=== PATIENT | male | born 1990 ===

== ENCOUNTER 2016-06-14 12:30 | Emergency (ER) | payer OTHER ==
[2016-06-14 12:31] VITALS: BMI 20.3
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
[2016-06-14 12:46] VITALS: TEMP 98.3
[2016-06-14] MEDS ORDERED: TDAP Vaccine 0.5 mL Syr IM ONE (12:48)
[2016-06-14 13:49] VITALS: BP 129/80; PULSE 69; RESP 16; O2SAT 99
== END 2016-06-14 13:47 | disposition home or self-care (01) ==
LOC: ED 12:30
DX: S91.012A Laceration without foreign body, left ankle, initial encounter (principal); W25.XXXA Contact with sharp glass, initial encounter; Y92.009 Unspecified place in unspecified non-institutional (private) residence as the place of occurrence of the external cause; Z23 Encounter for immunization

== ENCOUNTER 2016-08-29 12:06 | Emergency (ER) | payer OTHER ==
[2016-08-29 12:07] VITALS: BMI 19.9
[2016-08-29 12:11] VITALS: BP 110/74; PULSE 71; RESP 19; TEMP 98; O2SAT 100
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
== END 2016-08-29 13:10 | disposition home or self-care (01) ==
LOC: ED 12:06
DX: S80.811A Abrasion, right lower leg, initial encounter (principal); Y08.89XA Assault by other specified means, initial encounter; Y93.89 Activity, other specified; Y92.89 Other specified places as the place of occurrence of the external cause

== ENCOUNTER 2017-04-22 07:26 | Emergency (ER) | payer OTHER ==
[2017-04-22 07:38] VITALS: BMI 22.1
[2017-04-22 07:40] VITALS: PULSE 64; TEMP 98.3
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
[2017-04-22 08:14] VITALS: BP 128/79; RESP 18; O2SAT 98
== END 2017-04-22 08:14 | disposition home or self-care (01) ==
LOC: ED 07:26
DX: K08.89 Other specified disorders of teeth and supporting structures (principal); F17.210 Nicotine dependence, cigarettes, uncomplicated
CPT/HCPCS: 96372; 99283; J1885

== ENCOUNTER 2017-10-11 15:20 | Emergency (ER) | payer OTHER ==
[2017-10-11 15:45] VITALS: RESP 18; TEMP 98.6; BMI 20.7
--- NOTE | 2017-10-11 15:52 | ED PDOC ---
Arrival/HPI - General Chief Complaint: Hip Pain Time Seen by Provider: 10/11/17 15:37 Historian: Patient - History of Present Illness Narrative History of Present Illness (Text): 10/11/17 15:40 This 26 yo male with a pmh herniated disc, presents to this ED c/o left lower back pain, radiates to left buttock x 2 weeks. 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 Patient denies fever , sob, cp, abdominal pain, urinary symptoms, testicular symptoms, flank pain, std exposure, skin rash, /GI incontinence, saddle anesthesias, illegal iv drug use, urinary retention, dizziness, trauma, or abnormal gait. 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 Time/Duration: Other (see hpi) Context: Home Past Medical History - Provider Review Nursing Documentation Reviewed: Yes - Infectious Disease Hx of Infectious Diseases: None - Tetanus Immunization Tetanus Immunization: Unknown - Past Medical History Past Medical History: No Previous - Cardiac Hx Cardiac Disorders: No - Pulmonary Hx Respiratory Disorders: No - Neurological Other/Comment: BRAIN SURGERY 2009 DUE TO SKULL fracture and bleed clipped - HEENT Hx HEENT Disorder: No - Renal Hx Renal Disorder: No - Endocrine/Metabolic Hx Endocrine Disorders: No - Hematological/Oncological Hx Blood Disorders: No - Integumentary Hx Dermatological Disorder: No - Musculoskeletal/Rheumatological Hx Musculoskeletal Disorders: No Other/Comment: Left knee tear on meniscus - Gastrointestinal Hx Gastrointestinal Disorders: No - Genitourinary/Gynecological Hx Genitourinary Disorders: No - Psychiatric Hx Depression: No Hx Emotional Abuse: No Hx Physical Abuse: No Hx Substance Use: Yes - Past Surgical History Past Surgical History: No Previous - Surgical History Hx Appendectomy: Yes Other/Comment: BRAIN SURGERY 2009 - Anesthesia Hx Anesthesia: Yes Hx Anesthesia Reactions: No Hx Malignant Hyperthermia: No - Suicidal Assessment Feels Threatened In Home Enviroment: No Family/Social History - Physician Review Nursing Documentation Reviewed: Yes Family/Social History: Other (noncontributory) Smoking Status: Light Smoker < 10 Cigarettes Daily Hx Alcohol Use: Yes Hx Substance Use: Yes Substance used: marijuana Hx Substance Use Treatment: No Allergies/Home Meds Allergies/Adverse Reactions: Allergies No Known Allergies Allergy (Verified 10/11/17 15:38) Review of Systems - Review of Systems Constitutional: Normal. absent: Fatigue, Weight Change, Fevers Eyes: Normal ENT: Normal Respiratory: Normal. absent: SOB, Cough, Sputum, Wheezing Cardiovascular: Normal. absent: Chest Pain Gastrointestinal: Normal. absent: Abdominal Pain, Nausea, Vomiting Genitourinary Male: Normal. absent: Dysuria, Frequency, Hematuria Musculoskeletal: Back Pain Skin: Normal Neurological: Normal. absent: Headache, Dizziness, Focal Weakness, Gait Changes , Speech Changes, Facial Droop, Disequilibrium, Seizure Endocrine: Normal Hemo/Lymphatic: Normal Psychiatric: Normal Physical Exam Vital Signs Temp Pulse Resp BP Pulse Ox 10/11/17 16:41 98.6 F 70 18 115/71 100 10/11/17 15:20 98.6 F 73 18 112/72 96 Temperature: Afebrile Blood Pressure: Normal Pulse: Regular Respiratory Rate: Normal Appearance: Positive for: Well-Appearing, Non-Toxic, Comfortable Pain Distress: None Mental Status: Positive for: Alert and Oriented X 3 - Systems Exam Head: Present: Atraumatic, Normocephalic Pupils: Present: PERRL Extroacular Muscles: Present: EOMI Conjunctiva: Present: Normal Mouth: Present: Moist Mucous Membranes Neck: Present: Normal Range of Motion Respiratory/Chest: Present: Clear to Auscultation, Good Air Exchange. No: Respiratory Distress, Accessory Muscle Use Cardiovascular: Present: Regular Rate and Rhythm, Normal S1, S2. No: Murmurs Abdomen: No: Tenderness, Distention, Peritoneal Signs Back: Present: Normal Inspection, Other (Mild tenderness on area of left sciatica nerve). No: CVA Tenderness, Midline Tenderness, Paraspinal Tenderness , Pain with Leg Raise Upper Extremity: Present: Normal Inspection, Normal ROM. No: Cyanosis, Edema Lower Extremity: Present: Normal Inspection, Normal ROM. No: Edema Neurological: Present: GCS=15, CN II-XII Intact, Speech Normal Skin: Present: Warm, Dry, Normal Color. No: Rashes Psychiatric: Present: Alert, Oriented x 3, Normal Insight, Normal Concentration Medical Decision Making ED Course and Treatment: 10/11/17 16:21 Re-evaluation. Patient feels better. Discussed results and plan with patient who expresses understanding. All questions answered and there is agreement with the plan to discharge home with instructions. Patient stable for discharge. Return if symptoms persist or worsen. Patient was recommended to ED if he develops worsening of back pain, fever, skin rash, GI/ incontinence, abnormal gait, weakness, or new symptoms. Patient understood plan. Re-evaluation Time: 16:21 Reassessment Condition: Re-examined, Improved - Medication Orders Current Medication Orders: Discontinued Medications Ketorolac Tromethamine (Toradol) 30 mg IM STAT STA Stop: 10/11/17 15:53 Last Admin: 10/11/17 16:05 Dose: 30 mg MAR Pain Assessment Document 10/11/17 16:05 LA (Rec: 10/11/17 16:06 NM [id number]) Pain Reassessment Is this a pain reassessment? No Sleep Is patient sleeping during reassessment? No Presence of Pain Presence of Pain Yes Pain Scale Used Pain Scale Used Numeric Location Left, Right or Bilateral Left Pain Location Body Site Hip Description Description Cramping Intensity of Pain at present 3 Pain Behavior Guarding IM Administration Charges Document 10/11/17 16:05 LA (Rec: 10/11/17 16:06 LA [id number]) Injection Site MAR Injection Site Left Abdomen Charges for Administration # of IM Administrations 1 Disposition/Present on Arrival - Present on Arrival Any Indicators Present on Arrival: No History of DVT/PE: No History of Uncontrolled Diabetes: No Urinary Catheter: No History of Decub. Ulcer: No History Surgical Site Infection Following: None - Disposition Have Diagnosis and Disposition been Completed?: Yes Diagnosis: Back pain, Lumbar radiculopathy Disposition: HOME/ ROUTINE Disposition Time: 16:22 Patient Plan: Discharge Condition: GOOD Discharge Instructions (ExitCare): Sciatica (DC), Sciatica Exercises Additional Instructions: Call private doctor for follow up visit in 1-2 days. Take medication as instructed. Muscle relaxer could may you feel sleepy and drowsy, so do not drive or operate machinery for at least 12 hours if you take Robaxin. Return to emergency if you develop fever, worsening of sciatica pain, skin rash, urinary problems, bowel problems, weakness, shortness of breath, chest pain, abdominal pain, or worsening of your symptoms. Prescriptions: Methocarbamol [Robaxin-750] 750 mg PO DAILY PRN #10 tab PRN Reason: Muscle Spasm Naproxen 500 mg PO BID PRN #14 tablet PRN Reason: Pain, Severe (8-10) Referrals: Natali Zuleta [Primary Care Provider] - Follow up with primary Forms: [facility] (Qatari), WORK NOTE
[2017-10-11 16:46] VITALS: BP 115/71; PULSE 70; O2SAT 100
== END 2017-10-11 16:46 | disposition home or self-care (01) ==
LOC: ED 15:20
DX: M54.16 Radiculopathy, lumbar region (principal); M54.5 Low back pain
CPT/HCPCS: 96372; 99283; J1885